=== PATIENT | female | born 1960 | race Caucasian/White ===

== ENCOUNTER 2019-12-19 17:25 | Emergency (ER) | payer OTHER ==
[~2019-12-19] VITALS: Ht 172.7 cm; Wt 74.0 kg
[~2019-12-19 17:25] MED LIST: KEFLEX500 M1 PO; ROBITUSSIN AC10 ML PO; TESSALON PER100 MG PO; ULTRAM50 M1 PO
[2019-12-19] MEDS ORDERED: NORCO1 TA1 PO (18:07)
[2019-12-19] MEDS ORDERED: GABAPENTIN100 MG PO (18:08)
[2019-12-19] MEDS ORDERED: NAPROXEN500 MG PO (19:43)
[2019-12-19 19:50] VITALS: BP 139/74
== END 2019-12-19 19:50 | disposition home or self-care (01) ==
LOC: ED 17:25
DX: M17.11 Unilateral primary osteoarthritis, right knee (principal); F17.210 Nicotine dependence, cigarettes, uncomplicated

== ENCOUNTER 2022-05-11 07:05 | Day surgery (SDC) | payer OTHER ==
[~2022-05-11] VITALS: Ht 172.7 cm; Wt 69.9 kg
[~2022-05-11 07:05] MED LIST changes: +GABAPENTIN100 MG PO; +NAPROXEN500 MG PO; +NORCO1 TA1 PO
[2022-05-11] MEDS ORDERED: LORTAB 1010 MG PO (07:18)
[2022-05-11] MEDS ORDERED: DODEX1000 MCG IN (07:45)
[2022-05-11 09:20] VITALS: BP 135/83
== END 2022-05-11 09:10 | disposition home or self-care (01) ==
LOC: ENDO 07:05
PROVIDERS: ATTEND Surgery
DX: Z12.11 Encounter for screening for malignant neoplasm of colon (principal); K64.8 Other hemorrhoids